=== PATIENT | male | born 1940 | race Caucasian/White ===

== ENCOUNTER 2023-04-13 11:14 | Outpatient (RCR) | payer MEDICARE, SELFPAY ==
[2023-03-29 14:01] LABS: Glucose - Point of Care 80 mg/dl (70-99)
[2023-03-29 14:36] LABS: Glucose - Point of Care 170 mg/dl (70-99)
[2023-03-29 15:13] LABS: Glucose - Point of Care 143 mg/dl (70-99)
[2023-04-04 09:08] LABS: Glucose - Point of Care 205 mg/dl (70-99)
[2023-04-04 10:05] LABS: Glucose - Point of Care 129 mg/dl (70-99)
[2023-04-06 09:16] LABS: Glucose - Point of Care 94 mg/dl (70-99)
[2023-04-06 09:39] LABS: Glucose - Point of Care 101 mg/dl (70-99)
[2023-04-06 10:22] LABS: Glucose - Point of Care 108 mg/dl (70-99)
[2023-04-08 09:30] LABS: Glucose - Point of Care 163 mg/dl (70-99)
[2023-04-08 10:31] LABS: Glucose - Point of Care 97 mg/dl (70-99)
[2023-04-11 09:20] LABS: Glucose - Point of Care 153 mg/dl (70-99)
[2023-04-11 10:21] LABS: Glucose - Point of Care 112 mg/dl (70-99)
[2023-04-13 09:25] LABS: Glucose - Point of Care 133 mg/dl (70-99)
[2023-04-13 10:26] LABS: Glucose - Point of Care 61 mg/dl (70-99)
[2023-04-13 10:45] LABS: Glucose - Point of Care 81 mg/dl (70-99)
[2023-04-13 10:58] LABS: Glucose - Point of Care 115 mg/dl (70-99)
== END 2023-04-13 23:59 | disposition home or self-care (01) ==
LOC: CRHB 11:14
PROVIDERS: ATTENDING PHYSICIAN Internal Medicine
DX: I25.10 Atherosclerotic heart disease of native coronary artery without angina pectoris (principal); I25.2 Old myocardial infarction; Z95.1 Presence of aortocoronary bypass graft
CPT/HCPCS: 82962; G0422; G0423

== ENCOUNTER 2023-05-11 09:36 | Outpatient (RCR) | payer MEDICARE, SELFPAY ==
[2023-04-15 09:24] LABS: Glucose - Point of Care 139 mg/dl (70-99)
[2023-04-15 10:21] LABS: Glucose - Point of Care 139 mg/dl (70-99)
[2023-04-18 09:25] LABS: Glucose - Point of Care 181 mg/dl (70-99)
[2023-04-18 10:22] LABS: Glucose - Point of Care 162 mg/dl (70-99)
[2023-04-20 09:23] LABS: Glucose - Point of Care 199 mg/dl (70-99)
[2023-04-20 10:21] LABS: Glucose - Point of Care 109 mg/dl (70-99)
[2023-04-22 09:24] LABS: Glucose - Point of Care 202 mg/dl (70-99)
[2023-04-22 10:19] LABS: Glucose - Point of Care 137 mg/dl (70-99)
[2023-04-25 09:22] LABS: Glucose - Point of Care 275 mg/dl (70-99)
[2023-04-25 10:24] LABS: Glucose - Point of Care 107 mg/dl (70-99)
[2023-04-27 09:22] LABS: Glucose - Point of Care 211 mg/dl (70-99)
[2023-04-27 10:35] LABS: Glucose - Point of Care 219 mg/dl (70-99)
[2023-04-29 09:25] LABS: Glucose - Point of Care 284 mg/dl (70-99)
[2023-04-29 10:27] LABS: Glucose - Point of Care 193 mg/dl (70-99)
[2023-05-02 09:29] LABS: Glucose - Point of Care 197 mg/dl (70-99)
[2023-05-02 10:25] LABS: Glucose - Point of Care 181 mg/dl (70-99)
[2023-05-04 09:24] LABS: Glucose - Point of Care 178 mg/dl (70-99)
[2023-05-04 10:20] LABS: Glucose - Point of Care 144 mg/dl (70-99)
[2023-05-06 09:24] LABS: Glucose - Point of Care 117 mg/dl (70-99)
[2023-05-06 10:19] LABS: Glucose - Point of Care 149 mg/dl (70-99)
[2023-05-09 09:24] LABS: Glucose - Point of Care 256 mg/dl (70-99)
[2023-05-09 10:26] LABS: Glucose - Point of Care 120 mg/dl (70-99)
[2023-05-11 09:26] LABS: Glucose - Point of Care 226 mg/dl (70-99)
[2023-05-11 10:29] LABS: Glucose - Point of Care 178 mg/dl (70-99)
== END 2023-05-11 23:59 | disposition home or self-care (01) ==
LOC: CRHB 09:36
PROVIDERS: ATTENDING PHYSICIAN Internal Medicine
DX: I25.10 Atherosclerotic heart disease of native coronary artery without angina pectoris (principal); I21.4 Non-ST elevation (NSTEMI) myocardial infarction; I25.2 Old myocardial infarction; Z95.1 Presence of aortocoronary bypass graft; Z95.5 Presence of coronary angioplasty implant and graft
CPT/HCPCS: 82962; G0422; G0423

== ENCOUNTER → 2023-05-19 11:25 | Outpatient (REF) | payer MEDICARE, SELFPAY ==
[2023-05-19 12:08] LABS: HDL Cholesterol 71 mg/dl; LDL Cholesterol, Calculated 45 mg/dl; Total Cholesterol 127 mg/dl (50-199); Triglyceride 57 mg/dl (10-149); Very Low Density Lipoprotein 11 mg/dl (0-30)
== END ==
LOC: REG 11:25
PROVIDERS: ATTENDING PHYSICIAN Internal Medicine; FAMILY PHYSICIAN Family Medicine
DX: I21.4 Non-ST elevation (NSTEMI) myocardial infarction (principal)
CPT/HCPCS: 36415; 80061

== ENCOUNTER 2023-06-10 09:42 | Outpatient (RCR) | payer MEDICARE, SELFPAY ==
[2023-05-13 09:30] LABS: Glucose - Point of Care 200 mg/dl (70-99)
[2023-05-13 10:32] LABS: Glucose - Point of Care 253 mg/dl (70-99)
[2023-05-16 09:25] LABS: Glucose - Point of Care 179 mg/dl (70-99)
[2023-05-16 10:32] LABS: Glucose - Point of Care 162 mg/dl (70-99)
[2023-05-18 09:26] LABS: Glucose - Point of Care 208 mg/dl (70-99)
[2023-05-18 10:34] LABS: Glucose - Point of Care 146 mg/dl (70-99)
[2023-05-20 09:32] LABS: Glucose - Point of Care 114 mg/dl (70-99)
[2023-05-20 10:28] LABS: Glucose - Point of Care 97 mg/dl (70-99)
[2023-05-20 10:46] LABS: Glucose - Point of Care 137 mg/dl (70-99)
[2023-05-23 09:26] LABS: Glucose - Point of Care 152 mg/dl (70-99)
[2023-05-23 10:32] LABS: Glucose - Point of Care 140 mg/dl (70-99)
[2023-05-25 09:29] LABS: Glucose - Point of Care 246 mg/dl (70-99)
[2023-05-25 10:30] LABS: Glucose - Point of Care 247 mg/dl (70-99)
[2023-05-27 09:26] LABS: Glucose - Point of Care 214 mg/dl (70-99)
[2023-05-27 10:27] LABS: Glucose - Point of Care 200 mg/dl (70-99)
[2023-05-30 09:29] LABS: Glucose - Point of Care 127 mg/dl (70-99)
[2023-05-30 10:31] LABS: Glucose - Point of Care 116 mg/dl (70-99)
[2023-06-01 09:31] LABS: Glucose - Point of Care 332 mg/dl (70-99)
[2023-06-01 09:47] LABS: Glucose - Point of Care 284 mg/dl (70-99)
[2023-06-01 10:19] LABS: Glucose - Point of Care 267 mg/dl (70-99)
[2023-06-03 09:16] LABS: Glucose - Point of Care 225 mg/dl (70-99)
[2023-06-03 10:20] LABS: Glucose - Point of Care 185 mg/dl (70-99)
[2023-06-08 09:35] LABS: Glucose - Point of Care 191 mg/dl (70-99)
[2023-06-08 10:37] LABS: Glucose - Point of Care 150 mg/dl (70-99)
[2023-06-10 09:23] LABS: Glucose - Point of Care 145 mg/dl (70-99)
[2023-06-10 10:18] LABS: Glucose - Point of Care 92 mg/dl (70-99)
[2023-06-10 10:50] LABS: Glucose - Point of Care 136 mg/dl (70-99)
== END 2023-06-10 23:59 | disposition home or self-care (01) ==
LOC: CRHB 09:42
PROVIDERS: ATTENDING PHYSICIAN Internal Medicine; FAMILY PHYSICIAN Family Medicine
DX: Z51.89 Encounter for other specified aftercare (principal); I25.2 Old myocardial infarction
CPT/HCPCS: 82962; G0422; G0423

== ENCOUNTER 2023-06-22 09:34 | Outpatient (RCR) | payer MEDICARE, SELFPAY ==
[2023-06-15 09:13] LABS: Glucose - Point of Care 200 mg/dl (70-99)
[2023-06-15 10:20] LABS: Glucose - Point of Care 117 mg/dl (70-99)
[2023-06-17 09:33] LABS: Glucose - Point of Care 133 mg/dl (70-99)
[2023-06-17 10:20] LABS: Glucose - Point of Care 70 mg/dl (70-99)
[2023-06-17 10:35] LABS: Glucose - Point of Care 74 mg/dl (70-99)
[2023-06-17 10:57] LABS: Glucose - Point of Care 97 mg/dl (70-99)
[2023-06-20 09:34] LABS: Glucose - Point of Care 162 mg/dl (70-99)
[2023-06-20 10:43] LABS: Glucose - Point of Care 109 mg/dl (70-99)
[2023-06-22 09:20] LABS: Glucose - Point of Care 245 mg/dl (70-99)
[2023-06-22 10:22] LABS: Glucose - Point of Care 232 mg/dl (70-99)
== END 2023-06-22 23:59 | disposition home or self-care (01) ==
LOC: CRHB 09:34
PROVIDERS: ATTENDING PHYSICIAN Internal Medicine; FAMILY PHYSICIAN Family Medicine
DX: I21.4 Non-ST elevation (NSTEMI) myocardial infarction (principal)
CPT/HCPCS: 82962; G0422; G0423

== ENCOUNTER → 2024-04-09 08:48 | Outpatient (REF) | payer MEDICARE, SELFPAY | LOC: RAD 08:48 | PROVIDERS: ATTENDING PHYSICIAN Surgery Vascular Surgery; FAMILY PHYSICIAN Family Medicine | DX: I73.9 Peripheral vascular disease, unspecified (principal) | CPT/HCPCS: 93922; 93925 ==

== ENCOUNTER 2024-07-05 11:46 | Day surgery (SDC) | payer MEDICARE, SELFPAY ==
[2024-06-26 10:33] VITALS: BMI 33.5
[2024-06-26 10:54] LABS: % Basophils 1.6 % (0-2); % Eosinophils 2.4 % (0-6); % Immature Granulocytes 0.3 % (0-0.5); % Monocytes 10.5 % (1.7-9.3); % Neutrophils 55.2 % (42.2-75.2); Absolute Basophils 0.1 10^3/uL (0-0.2); Absolute Eosinophils 0.2 10^3/uL (0-0.7); Absolute Lymphocytes 1.9 10^3/uL (1.2-3.4); Absolute Monocytes 0.7 10^3/uL (0.1-0.6); Absolute Neutrophils 3.5 10^3/uL (1.4-6.5); Hemoglobin 13.2 g/dL (13.0-18.0); Mean Corp Hgb Conc. 34.7 g/dL (33.0-37.0); Mean Corpuscular Hgb 30.1 pg (27.0-31.0); Mean Corpuscular Volume 86.8 fL (80.0-94.0); Mean Platelet Volume 9.8 fL (7.4-10.4); Nucleated Red Blood Cells % 0 % (-); Platelet Count 203 10^3/uL (130-400); Red Blood Cell Count 4.38 10^6/uL (4.70-6.10); Red Cell Dist. Width 15.1 % (11.5-14.5); White Blood Cell Count 6.3 10^3/uL (4.8-10.8)
[2024-06-26 11:57] LABS: ALT (SGPT) 28 U/L (0-50); AST (SGOT) 35 U/L (17-59); Albumin 4.2 g/dl (3.5-5.0); Alkaline Phosphatase 89 U/L (38-126); Blood Urea Nitrogen 18 mg/dl (9-20); Calcium 9.1 mg/dl (8.4-10.2); Carbon Dioxide 26 mmol/L (22-30); Chloride 105 mmol/L (98-107); Estimated Creatinine Clearance 81 ml/min; Glucose 65 mg/dl (70-99); Potassium 4.2 mmol/L (3.5-5.1); Sodium 140 mmol/L (135-145); Total Protein 6.4 g/dl (6.3-8.2); eGFR > 60.00
[2024-07-05 11:50] VITALS: BP 136/63
[2024-07-05 12:20] LABS: Glucose - Point of Care 148 mg/dl (70-99)
== END 2024-07-05 16:48 | disposition home or self-care (01) ==
LOC: CATH 11:46
PROVIDERS: ATTENDING PHYSICIAN Internal Medicine Cardiovascular Disease; FAMILY PHYSICIAN Family Medicine; OTHER PHYSICIAN Internal Medicine
DX: I49.5 Sick sinus syndrome (principal); Z53.8 Procedure and treatment not carried out for other reasons; I10 Essential (primary) hypertension; Z79.4 Long term (current) use of insulin; E11.51 Type 2 diabetes mellitus with diabetic peripheral angiopathy without gangrene; I25.5 Ischemic cardiomyopathy; E78.5 Hyperlipidemia, unspecified; I25.10 Atherosclerotic heart disease of native coronary artery without angina pectoris; Z95.1 Presence of aortocoronary bypass graft; K21.9 Gastro-esophageal reflux disease without esophagitis; E03.9 Hypothyroidism, unspecified; Z79.82 Long term (current) use of aspirin; Z79.899 Other long term (current) drug therapy; Z79.01 Long term (current) use of anticoagulants; Z79.890 Hormone replacement therapy; Z87.891 Personal history of nicotine dependence; E66.9 Obesity, unspecified; Z68.33 Body mass index [BMI] 33.0-33.9, adult; K58.9 Irritable bowel syndrome, unspecified; R42 Dizziness and giddiness; M19.90 Unspecified osteoarthritis, unspecified site
CPT/HCPCS: 36415; 80053; 82962; 85025; 93005

== ENCOUNTER 2024-07-16 09:54 | Day surgery (SDC) | payer MEDICARE, SELFPAY ==
[2024-07-16] VITALS (7 sets, daily range): BP systolic 129–150; BP diastolic 64–67; BMI 33.5
[2024-07-16 10:54] LABS: Glucose - Point of Care 88 mg/dl (70-99)
[2024-07-16 13:00] LABS: Glucose - Point of Care 98 mg/dl (70-99)
[2024-07-16 15:09] LABS: Glucose - Point of Care 63 mg/dl (70-99)
[2024-07-16 15:30] LABS: Glucose - Point of Care 95 mg/dl (70-99)
== END 2024-07-16 15:45 | disposition home or self-care (01) ==
LOC: CATH 09:54
PROVIDERS: ATTENDING PHYSICIAN Internal Medicine; FAMILY PHYSICIAN Family Medicine
DX: I49.5 Sick sinus syndrome (principal); Z45.010 Encounter for checking and testing of cardiac pacemaker pulse generator [battery]; E78.5 Hyperlipidemia, unspecified; I10 Essential (primary) hypertension; I25.10 Atherosclerotic heart disease of native coronary artery without angina pectoris; I25.2 Old myocardial infarction; Z95.5 Presence of coronary angioplasty implant and graft; I25.5 Ischemic cardiomyopathy; I65.23 Occlusion and stenosis of bilateral carotid arteries; E11.9 Type 2 diabetes mellitus without complications; Z79.82 Long term (current) use of aspirin; Z79.01 Long term (current) use of anticoagulants; Z79.4 Long term (current) use of insulin; Z79.890 Hormone replacement therapy; Z79.899 Other long term (current) drug therapy; Z95.1 Presence of aortocoronary bypass graft
CPT/HCPCS: 33228; 36415; 80053; 82962; 85025; 93005; 93306; C1785

== ENCOUNTER → 2024-10-25 14:18 | Outpatient (REF) | payer MEDICARE, SELFPAY | LOC: DHVS 14:18 | PROVIDERS: ATTENDING PHYSICIAN Surgery Vascular Surgery; FAMILY PHYSICIAN Internal Medicine | DX: I73.9 Peripheral vascular disease, unspecified (principal) | CPT/HCPCS: 93922; 93925 ==